=== PATIENT | female | born 1945 | race Caucasian/White ===

== ENCOUNTER 2022-05-01 01:43 | Emergency (ER) | payer MEDICARE, OTHER ==
[~2022-05-01] VITALS: Ht 167.6 cm; Wt 96.6 kg
[2022-05-01 01:56] VITALS: BP 120/83
[2022-05-01] MEDS ORDERED: TORADOL ONE (01:56)
[2022-05-01] MEDS: TORADOL IM STA (01:59)
--- NOTE | 2022-05-01 02:01 | ER.PDOC ---
General Chief Complaint: Requesting Medical Care Stated Complaint: L SHOULDER STIFFNESS Time seen by MD: 01:57 Source: patient Exam Limitations: no limitations History of Present Illness Initial Comments Left shoulder pain this morning. Patient moved it wrongly and felt a pop. Occurred: just prior to arrival Where: other (hotel) Severity: moderate Allergies: Coded Allergies: No Known Allergies (Unverified , 05/01/22) Past Medical History Medical History: congestive heart failure Family History Significant Family History: no pertinent family hx Social History Smoking: non-smoker Alcohol Use: none Drug Use: none Review of Systems Constitutional: no symptoms reported EENTM: no symptoms reported Respiratory: no symptoms reported Cardiovascular: no symptoms reported Musculoskeletal: see HPI All Other Systems: Reviewed and Negative Physical Exam General Appearance: Alert, No Apparent Distress Shoulder: tenderness (left shoulder without deformity or swelling) Upper Extremities: uninjuried below shoulder Neuro: sensation nml, motor nml Vascular: no vascular compromise Skin: warm/dry Head/ENT: nml inspection, pharynx nml Neck/Back: non-tender, nml inspection, painless ROM Respiratory: chest non-tender, breath sounds nml CVS: reg rate & rhythm, heart sounds nml Abdomen: non-tender, no organomegaly Results/Orders Results/Orders Orders - YULIYA RAPP MD Xr Shoulder Lt 2v (05/01/22 01:56) Ketorolac Tromethamine (Toradol) (05/01/22 01:56) Ketorolac Tromethamine (Toradol) (05/01/22 01:56) Vital Signs Date Time Temp Pulse Resp B/P (MAP) Pulse Ox O2 Delivery O2 Flow Rate FiO2 05/01/22 01:56 97.8 82 16 120/83 (95) 95 Room Air* 0 21 05/01/22 01:56 97.8 82 16 95 05/01/22 01:56 97.8 82 16 Administered Medications Medications (Trade) Dose Ordered Sig/Andrés Route PRN Reason Start Time Stop Time Status Last Admin Dose Admin Ketorolac Tromethamine (Toradol) 30 mg STAT STAT IM 05/01/22 01:56 05/01/22 01:59 DC 05/01/22 01:59 30 MG Progress Progress X-rays of left shoulder show no acute bony abnormality. Patient received a Toradol shot with improvement in pain. ER DEPART Departure Time of Disposition: 02:41 Disposition: 01 HOME / SELF CARE / HOMELESS Impression: Primary Impression: Shoulder injury Additional Impression: Shoulder pain, left Condition: Improved Referrals: PCP,UNKNOWN (PCP) PRIMARY CARE PROVIDER Additional Instructions: Continue with oxycodone at home Medrol Dosepak Methocarbamol Follow-up with your PCP next week Return to ED if worsening or concerns Duration or Time Spent with Pa: 10 min Problem Qualifiers Primary Impression: Shoulder injury Encounter type: initial encounter Laterality: left Qualified Codes: S49.92XA - Unspecified injury of left shoulder and upper arm, initial encounter Additional Impression: Shoulder pain, left Chronicity: acute Qualified Codes: M25.512 - Pain in left shoulder YULIYA RAPP MD May 01, 2022 02:01
[2022-05-01 02:47] VITALS: BP 106/56
--- NOTE | 2022-05-01 02:48 | DIREP ---
PROCEDURE:XRAY SHOULDER MIN 2 VWS-LT COMPARISON:None. INDICATIONS:Pain/Injury FINDINGS: BONES:No fractures or other acute bony abnormalities. Surgical anchor present in the humeral head. JOINTS:Narrowing of the glenohumeral and acromioclavicular joints. SOFT TISSUES:Normal. OTHER:Normal. CONCLUSION:No acute left shoulder abnormalities. DJD. Dictated by: Ben Villarreal M.D. on 05/01/2022 at 02:45 AM
== END 2022-05-01 02:47 | disposition home or self-care (01) ==
LOC: ER 01:43
DX: S49.92XA Unspecified injury of left shoulder and upper arm, initial encounter (principal); I50.9 Heart failure, unspecified; M25.512 Pain in left shoulder; X58.XXXA Exposure to other specified factors, initial encounter; Y93.89 Activity, other specified; Y92.89 Other specified places as the place of occurrence of the external cause; Y99.8 Other external cause status
CPT/HCPCS: 99283; 96372; 73030; J1885